=== PATIENT | female | born 1980 | race Caucasian/White ===

== ENCOUNTER 2016-08-06 06:34 | Day surgery (SDC) | payer BC ==
[2016-08-06] MEDS ORDERED: Lactated Ringers 1,000 ML IV SCH (07:30)
[2016-08-06] MEDS ORDERED: Glycopyrrolate 0.2 MG/ML 2 ML SYRINGE IVPUSH ONE (07:45)
[2016-08-06] MEDS ORDERED: Cyanocobalamin (Vitamin B12) 1,000 MCG/ML SDV IM ONE (08:00)
[2016-08-06] MEDS ORDERED: Propofol 200 MG/20 ML SDV ONE (08:10)
[2016-08-06] MEDS ORDERED: Midazolam 1 MG/ML 2 ML SDV ONE (08:10)
[2016-08-06] MEDS ORDERED: fentaNYL 100 MCG/2 ML SDV ONE (08:10)
[2016-08-06] MEDS ORDERED: MVI, Adult with Vitamin K 10 ML, Thiamine 200 MG, Chromium/Copper/Mang/Selen/Zn 1 ML in... IV SCH ×4 (08:45)
[2016-08-06] MEDS ORDERED: MVI, Adult with Vitamin K 10 ML, Thiamine 200 MG, Chromium/Copper/Mang/Selen/Zn 1 ML in... IV ONE ×4 (08:45)
[2016-08-06 10:54] VITALS: BP 119/67
--- NOTE | 2016-08-13 13:49 | OR ---
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 POSTOPERATIVE DIAGNOSIS: Moderately strictured gastrojejunostomy. OPERATIVE PROCEDURE: Upper GI endoscopy with dilation of gastrojejunostomy (04095). ANESTHESIA: IV sedation. INDICATIONS FOR PROCEDURE: This is a 36-year-old female presenting with a picture suggestive of stricturing at her gastrojejunostomy, having been had a gastric bypass on 06/20/2016. Plan is to proceed with an upper GI endoscopy with dilation as indicated. Potential risks including bleeding and perforation were discussed, and the patient wishes to proceed. DETAILS OF PROCEDURE: The patient was taken to the operating room and placed in left lateral decubitus position. IV sedation was administered, after which the upper GI endoscope was passed orally through the length of the esophagus and into the gastric pouch. The patient was noted to have no retained food or fluid under fluoroscopic surveillance, and the moderate stricture was then traversed, and then dilated with a 36-Pashto balloon catheter. This was held in position for 1 minute, after which the balloon catheter was deflated and withdrawn. The scope could easily be passed through the area that had previously been moderately strictured. No complications were noted. The scope was then withdrawn. The procedure concluded. The patient was taken to the recovery room in satisfactory condition. Jaswinder De La Cruz MD /[id number]
== END 2016-08-06 11:06 | disposition home or self-care (01) ==
LOC: JP.SDS 06:34
PROVIDERS: ATTEND Surgery
PROC: 0D768ZZ Dilation of Stomach, Via Natural or Artificial Opening Endoscopic (ICD-10-PCS; principal; 2016-08-06)
DX: K91.89 Other postprocedural complications and disorders of digestive system (principal); Y84.8 Other medical procedures as the cause of abnormal reaction of the patient, or of later complication, without mention of misadventure at the time of the procedure; R13.10 Dysphagia, unspecified; Z98.84 Bariatric surgery status
CPT/HCPCS: 43245; J2250; J2704; J3010; J3411; J3420; J7120

== ENCOUNTER 2016-08-23 06:31 | Day surgery (SDC) | payer BC ==
[2016-08-23] MEDS ORDERED: Lactated Ringers 1,000 ML IV SCH (07:00)
[2016-08-23] MEDS ORDERED: Propofol 200 MG/20 ML SDV ONE (07:13)
[2016-08-23] MEDS ORDERED: Midazolam 1 MG/ML 2 ML SDV ONE (07:13)
[2016-08-23] MEDS ORDERED: fentaNYL 100 MCG/2 ML SDV ONE (07:13)
[2016-08-23] MEDS ORDERED: Glycopyrrolate 0.2 MG/ML 2 ML SYRINGE IVPUSH ONE (07:45)
[2016-08-23] MEDS ORDERED: Cyanocobalamin (Vitamin B12) 1,000 MCG/ML SDV IM ONE (08:15)
[2016-08-23] MEDS ORDERED: MVI, Adult with Vitamin K 10 ML, Thiamine 200 MG, Chromium/Copper/Mang/Selen/Zn 1 ML in... IV ONE ×4 (09:00)
[2016-08-23 12:26] VITALS: BP 114/74
--- NOTE | 2016-08-23 12:42 | OR ---
DATE OF PROCEDURE: 08/23/2016 PROCEDURE: EGD. FINDINGS: 1. Approximately 60% narrowing of the gastrojejunal anastomosis (the scope could be advanced without dilation). 2. No other gross abnormalities. COMPLICATIONS: None. CHEMISTRY ASSOCIATE: None. BALLOON USED: A 36-[place]ay[place] Islander dilation #2. ANESTHESIA: MAC. INDICATION: Risks, benefits, alternatives, and limitations, including, but not limited to infection, bleeding, and perforation were explained to the patient and she wished to proceed. PROCEDURE IN DETAIL: The patient was placed in left lateral decubitus position. The EGD scope was introduced and advanced atraumatically to the gastrojejunal anastomosis. This was noted to be about 60% narrowed. The scope was able to be passed through this barely without intraoperative fluoroscopy. This was passed through and the pouch was inspected. There was no evidence of ulceration. The blind limb was normal. The Jessi-en-Y limb was also normal. A 36-Cay[place] Islander balloon was introduced and subsequently dilated for 1 minute. After this, the anastomosis was inspected. There were no other abnormalities. Bleeding was minimal. The esophagus was normal. The patient tolerated the procedure well. Sarmad Gayle MD /[id number]
== END 2016-08-23 11:35 | disposition home or self-care (01) ==
LOC: JP.SDS 06:31
PROVIDERS: ATTEND Surgery
DX: K91.89 Other postprocedural complications and disorders of digestive system (principal); Z88.1 Allergy status to other antibiotic agents; Z88.2 Allergy status to sulfonamides; Z88.8 Allergy status to other drugs, medicaments and biological substances
CPT/HCPCS: 43245; J2250; J2704; J3010; J3411; J3420; J7120

== ENCOUNTER 2017-09-25 05:49 | Day surgery (SDC) | payer BC ==
[2017-09-25] MEDS ORDERED: Acetaminophen 500 MG Tab PO ONE (06:00)
[2017-09-25] MEDS ORDERED: Dextrose 5%-Lactated Ringers 1,000 ML IV SCH (06:30)
[2017-09-25] MEDS ORDERED: Clindamycin Phosphate 900 MG in Sodium Chloride 0.9% 100 ML IV ONE (06:30)
[2017-09-25] MEDS ORDERED: Albuterol/Ipratropium 3.0-0.5 MG/3 ML Neb Soln NEB ONE (06:30)
[2017-09-25] MEDS ORDERED: Bupivacaine 0.5%/EPINEPHrine 1:200,000 50 ML MDV ONE (06:35)
[2017-09-25] MEDS ORDERED: Meropenem 500 MG SDV ONE (06:48)
[2017-09-25] MEDS ORDERED: fentaNYL 250 MCG/5 ML SDV ONE (06:52)
[2017-09-25] MEDS ORDERED: Ketorolac 60 MG/2 ML SDV ONE (07:35)
[2017-09-25] MEDS ORDERED: Ondansetron 4 MG/2 ML SDV ONE (07:38)
[2017-09-25] MEDS ORDERED: Dexamethasone 4 MG/ML SDV ONE (07:38)
[2017-09-25] MEDS ORDERED: Propofol 200 MG/20 ML SDV ONE (07:38)
[2017-09-25] MEDS ORDERED: Glycopyrrolate 0.2 MG/ML 5 ML MDV ONE (07:38)
[2017-09-25] MEDS ORDERED: Rocuronium 50 MG/5 ML Vial ONE (07:38)
[2017-09-25] MEDS ORDERED: Neostigmine Methylsulfate 1 MG/ML 5 ML Syringe ONE (07:38)
[2017-09-25] MEDS ORDERED: Succinylcholine 200 MG/10 ML MDV ONE (07:38)
[2017-09-25] MEDS ORDERED: HYDROmorphone 2 MG Tab PO PRN (09:11)
[2017-09-25 10:02] VITALS: BP 118/69
--- NOTE | 2017-10-01 14:30 | OR ---
DATE OF PROCEDURE: 09/25/2017 PREOPERATIVE DIAGNOSIS: Incarcerated incisional hernia. POSTOPERATIVE DIAGNOSIS: Incarcerated incisional hernia. OPERATIVE PROCEDURE: Open repair of incarcerated incisional hernia with mesh ([id number], [id number]). ANESTHESIA: General. ASSISTANTS: 1. Zara Hinojosa PA-C. 2. LUCY Lay. 3. LUCY Velez. INDICATIONS FOR PROCEDURE: This is a 37-year-old presenting with an incarcerated hernia marked for a laparoscopic trocar sites. This has not been reducible with plan to proceed with the open repair with mesh plug technique. Potential risks including bleeding, infection, injury to underlying viscera, problems with the hernia recurring or mesh becoming infected were all reviewed, and the patient wishes to proceed. DETAILS OF PROCEDURE: The patient was taken to the operating room and placed in a supine position. The site of the incarcerated hernia had been marked on the abdominal wall. After general endotracheal anesthesia was induced, the abdomen was prepped and draped. The area of incarcerated hernia was once again palpated and transversely oriented incision was made overlying this, carried down through the skin and subcutaneous tissue and then continued down around the area of the incarcerated hernia. The preperitoneal fat located within 3 layers of muscle was then dissected free and then excised, flushed with the underlying fascial defect which measured around 6 mm. Once this had been completed, a medium mesh plug was selected. This was then placed in the plane just below the fascia and affixed 4 corners with horizontal mattress sutures of 0 Vicryl stitch, thus fixing the edges of the mesh well away from the actual fascial defect. Fascial defect itself was then closed with 3 stitches of #1 Vicryl stitch. The subcutaneous tissue was approximated with some 4-0 Vicryl stitch and the skin was closed with 4-0 Vicryl subcuticular stitch. Dressing was applied. The patient was taken to the recovery room in satisfactory condition. Physician administrative sales assistant, Zara Hinojosa PA-C, played an essential role in assisting in this case, helping to position the patient, retract structures as needed, as well as suturing and cutting sutures when indicated. Her presence improved patient's safety and decreased operative time. Jaswinder De La Cruz MD /[id number]
== END 2017-09-25 10:05 | disposition home or self-care (01) ==
LOC: JP.SDS 05:49
PROVIDERS: ATTEND Surgery
DX: K43.0 Incisional hernia with obstruction, without gangrene (principal); F33.9 Major depressive disorder, recurrent, unspecified; J45.990 Exercise induced bronchospasm; K21.9 Gastro-esophageal reflux disease without esophagitis; E66.9 Obesity, unspecified; Z79.2 Long term (current) use of antibiotics; Z79.899 Other long term (current) drug therapy; Z88.1 Allergy status to other antibiotic agents; Z88.2 Allergy status to sulfonamides; Z88.8 Allergy status to other drugs, medicaments and biological substances; Z87.891 Personal history of nicotine dependence; Z68.24 Body mass index [BMI] 24.0-24.9, adult
CPT/HCPCS: 49561; 49568; 81025; 88302; 94640; A9270; C1781; J0330; J1100; J1885; J2185; J2405; J2704; J2710; J3010; J7030; J7042; J7620; S0077

== ENCOUNTER 2017-12-07 12:44 | Emergency (ER) | payer SELFPAY ==
[2017-12-07 13:08] VITALS: BP 118/70
[2017-12-07] MEDS ORDERED: Bacitracin Oint 1 GM U/D Packet TOP ONE (13:50)
--- NOTE | 2017-12-07 14:00 | EDM.PDOC ---
ED HPI GENERAL MEDICAL PROBLEM - General Chief Complaint: General Time Seen by Provider: 12/07/17 13:30 Source of Information: Reports: Patient History Limitations: Reports: No Limitations - History of Present Illness INITIAL COMMENTS - FREE TEXT/NARRATIVE: 37-year-old female was cleaning a postsurgical area when she had a slight scalpel injury to the distal aspect of the index finger on the left hand. Onset: Sudden Duration: Hour(s): (Within the last hour) Location: Reports: Upper Extremity, Left Severity: Mild - Related Data Allergies Allergy/AdvReac Type Severity Reaction Status Date / Time cefdinir [From Omnicef] Allergy Hives Verified 09/25/17 06:06 erythromycin base AdvReac Stomach Verified 09/25/17 06:06 [Erythromycin Base] Upset Sulfa (Sulfonamide AdvReac Stomach Verified 09/25/17 06:06 Antibiotics) Upset Home Meds: Home Meds Albuterol [Proair HFA] 2 puff PO QID PRN 02/07/14 [History] SUMAtriptan Succinate [Sumatriptan Succinate] 0.5 ml SUBCUT ASDIRECTED 02/07/14 [History] Sertraline HCl 50 mg PO QPM 02/07/14 [History] Cetirizine [ZyrTEC] 10 mg PO DAILY 06/16/16 [History] Cyanocobalamin (Vitamin B-12) [Vitamin B-12] 1,000 mcg SL BID 06/16/16 [History] Cyclobenzaprine [Flexeril] 10 mg PO TID PRN 06/16/16 [History] Docusate Sodium [Dok] 100 mg PO DAILY 06/16/16 [History] Etonogestrel [Nexplanon] 68 mg IM .Q3YR 06/16/16 [History] Olopatadine [Patanol 0.1% Ophth Soln] 1 drop EYERT BID PRN 06/16/16 [History] Calcium Cit/Mag/D3/Zn/Motion Picture Commentator/Quinn [Calcium Citrate Plus Tablet] 1 each PO BID 08/05 [History] Iron,Carbonyl/Ascorbic Acid [Vitron-C Tablet] 1 each PO BID 08/05/16 [History] Multivitamin [Multi-Vitamin Daily] 1 tab PO BID 08/05/16 [History] Dicyclomine [Bentyl] 10 mg PO Q4HR PRN 09/21/17 [History] Fluticasone Propionate [Flonase] 1 spray JESSIE BID 09/21/17 [History] Omeprazole 20 mg PO DAILY 09/21/17 [History] Ondansetron HCl [Zofran] 4 mg PO Q4HR PRN 09/21/17 [History] Sertraline HCl [Zoloft] 100 mg PO QAM 09/25/17 [History] Past Medical History HEENT History: Reports: Impaired Vision, Otitis Media Other HEENT History: wears glasses Cardiovascular History: Reports: Heart Murmur Respiratory History: Reports: Asthma Other Respiratory History: "allergy induced asthma" Gastrointestinal History: Reports: Chronic Constipation Genitourinary History: Reports: Renal Calculus 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: Musculoskeletal History: Reports: Other (See Below) Other Musculoskeletal History: right ac joint pain Neurological History: Reports: Migraines Psychiatric History: Reports: Depression Endocrine/Metabolic History: Reports: Obesity/BMI 30+ Hematologic History: Reports: B12 Deficiency, Iron Deficiency - Infectious Disease History Infectious Disease History: Reports: Chicken Pox - Past Surgical History HEENT Surgical History: Reports: Oral Surgery, Tonsillectomy GI Surgical History: Reports: Bariatric Procedure, Cholecystectomy, EGD, Esophageal Dilatation, Hernia Repair/Other Female Surgical History: Reports: Section, Other (See Below) Other Female Surgeries/Procedures: ovarian cyst removed Oncologic Surgical History: Reports: None Social & Family History - Family History HEENT: Reports: Cataract Cardiac: Reports: Cardiomyopathy, Heart Murmur, High Cholesterol, Hypertension, [place] Other Cardiac Family History: ventricular septal defect in twin sister Respiratory: Reports: PE : Reports: Renal Calculus OBGYN: Reports: Fibroids Musculoskeletal: Reports: Back pain, Chronic Neurological: Reports: CVA, Migraines Psychiatric: Reports: Depression Endocrine/Metabolic: Reports: Diabetes, type II Oncologic: Reports: Lung, Thyroid, Uterine - Tobacco Use Smoking Status *Q: Never Smoker - Caffeine Use Caffeine Use: Reports: Coffee - Recreational Drug Use Recreational Drug Use: No ED ROS GENERAL - Review of Systems Review Of Systems: ROS reveals no pertinent complaints other than HPI. ED EXAM, GENERAL - Physical Exam Exam: See Below Exam Limited By: No Limitations General Appearance: Alert, No Apparent Distress Respiratory/Chest: No Respiratory Distress Extremities: Other (Remainder of exam is limited to the left hand. She has a very small, 3 mm superficial abrasion or laceration to the palmar surface of the distal index finger, no active bleeding) Course - Vital Signs Last Recorded V/S: Last Vital Signs Temp 97.7 F 12/07/17 13:07 Pulse 77 12/07/17 13:07 Resp 18 12/07/17 13:07 BP 118/70 12/07/17 13:07 Pulse Ox 99 12/07/17 13:07 - Orders/Labs/Meds Meds: Medications Discontinued Medications Generic Name Dose Route Start Last Admin Trade Name Odessa PRN Reason Stop Dose Admin Bacitracin 1 dose 12/07/17 13:50 12/07/17 14:10 Bacitracin Oint 1 Gm TOP 12/07/17 13:51 Not Given ONETIME ONE - Re-Assessments/Exams Free Text/Narrative Re-Assessment/Exam: 12/07/17 13:58 The usual source and patient labs were drawn per protocol including hepatitis B , C, HIV. No prophylactic treatment recommended for requested. Topical bacitracin was applied to the wound and the patient can follow up per lab results. Departure - Departure Time of Disposition: 14:12 Disposition: Home, Self-Care 01 Condition: Good Clinical Impression: Needle stick injury of finger of left hand Qualifiers: Encounter type: initial encounter Qualified Code(s): S61.239A - Puncture wound without foreign body of unspecified finger without damage to nail, initial encounter - Discharge Information Instructions: Needlestick Injury, [id number] Referrals: PCP,None [Primary Care Provider] - Forms: ED Department Discharge Care Plan Goals: Keep wound covered and clean while healing. Recheck if concerns of infection or not healing satisfactorily, and you will be contacted with lab results.
== END 2017-12-07 14:12 | disposition home or self-care (01) ==
LOC: JP.ED 12:44
DX: S61.230A Puncture wound without foreign body of right index finger without damage to nail, initial encounter (principal); I10 Essential (primary) hypertension; I25.2 Old myocardial infarction; E78.00 Pure hypercholesterolemia, unspecified; E11.9 Type 2 diabetes mellitus without complications; F32.9 Major depressive disorder, single episode, unspecified; J45.909 Unspecified asthma, uncomplicated; Z88.0 Allergy status to penicillin; Z88.2 Allergy status to sulfonamides; Z87.442 Personal history of urinary calculi; Z79.899 Other long term (current) drug therapy; W26.8XXA Contact with other sharp object(s), not elsewhere classified, initial encounter
CPT/HCPCS: 99282; 99283

== ENCOUNTER 2018-09-29 09:46 | Emergency (ER) | payer BC ==
[2018-09-29] MEDS ORDERED: Ketorolac 60 MG/2 ML SDV IM ONE (10:19)
[2018-09-29 10:32] VITALS: BP 125/66
--- NOTE | 2018-09-29 10:41 | EDM.PDOC ---
<Fadumo Duong M - Last Filed: 09/29/18 11:32> ED HPI GENERAL MEDICAL PROBLEM - General Chief Complaint: Genitourinary Problem Stated Complaint: RIGHT BACK PAIN Time Seen by Provider: 09/29/18 10:10 Source of Information: Reports: Patient History Limitations: Reports: No Limitations - History of Present Illness Onset: Today, Sudden (4am. Woke with need to have bowel movement at 3am, very unusual for patient, then intense abdominal pain at 4. Unable to resume sleep. Comes in with mother. ) Quality: Reports: Stabbing Severity: Severe (rates 10/10 when most uncomfortable, 6/10 when comfortable.) Associated Symptoms: Reports: No Other Symptoms Right Flank Pain Score (Numeric/FACES): 8 - Related Data Allergies Allergy/AdvReac Type Severity Reaction Status Date / Time cefdinir [From Omnicef] Allergy Hives Verified 09/29/18 09:56 erythromycin base AdvReac Stomach Verified 09/29/18 09:56 [Erythromycin Base] Upset Sulfa (Sulfonamide AdvReac Stomach Verified 09/29/18 09:56 Antibiotics) Upset Home Meds: Home Meds Albuterol [Proair HFA] 2 puff PO QID PRN 02/07/14 [History] SUMAtriptan succinate [Sumatriptan Succinate] 0.5 ml SUBCUT ASDIRECTED 02/07/14 [History] Sertraline HCl 50 mg PO QPM 02/07/14 [History] Cetirizine [ZyrTEC] 10 mg PO DAILY 06/16/16 [History] Cyanocobalamin (Vitamin B-12) [Vitamin B-12] 1,000 mcg SL BID 06/16/16 [History] Cyclobenzaprine [Flexeril] 10 mg PO TID PRN 06/16/16 [History] Docusate Sodium [Dok] 100 mg PO DAILY 06/16/16 [History] Etonogestrel [Nexplanon] 68 mg IM .Q3YR 06/16/16 [History] Olopatadine [Patanol 0.1% Ophth Soln] 1 drop EYERT BID PRN 06/16/16 [History] Calcium Cit/Mag/D3/Zn/Impregnating Tank Operator/Quinn [Calcium Citrate Plus Tablet] 1 each PO BID 08/05 [History] Iron,Carbonyl/Ascorbic Acid [Vitron-C Tablet] 1 each PO BID 08/05/16 [History] Multivitamin [Multi-Vitamin Daily] 1 tab PO BID 08/05/16 [History] Ondansetron HCl [Zofran] 4 mg PO Q4HR PRN 09/21/17 [History] Sertraline HCl [Zoloft] 100 mg PO QAM 09/25/17 [History] Past Medical History HEENT History: Reports: Impaired Vision, Otitis Media Other HEENT History: wears glasses Cardiovascular History: Reports: Heart Murmur Respiratory History: Reports: Asthma, Other (See Below) Other Respiratory History: "allergy induced asthma" Gastrointestinal History: Reports: Chronic Constipation Genitourinary History: Reports: Renal Calculus, UTI, 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: Musculoskeletal History: Reports: Other (See Below) Other Musculoskeletal History: right ac joint pain Neurological History: Reports: Migraines Psychiatric History: Reports: Depression Endocrine/Metabolic History: Reports: Obesity/BMI 30+ Hematologic History: Reports: B12 Deficiency, Iron Deficiency - Infectious Disease History Infectious Disease History: Reports: Chicken Pox - Past Surgical History HEENT Surgical History: Reports: Oral Surgery, Tonsillectomy GI Surgical History: Reports: Bariatric Procedure, Cholecystectomy, EGD, Esophageal Dilatation, Hernia Repair/Other Female Surgical History: Reports: Section, Other (See Below) Other Female Surgeries/Procedures: ovarian cyst removed Oncologic Surgical History: Reports: None Social & Family History - Family History HEENT: Reports: Cataract Cardiac: Reports: Cardiomyopathy, Heart Murmur, High Cholesterol, Hypertension, [place] Other Cardiac Family History: ventricular septal defect in twin sister Respiratory: Reports: PE : Reports: Renal Calculus OBGYN: Reports: Fibroids Musculoskeletal: Reports: Back pain, Chronic Neurological: Reports: CVA, Migraines Psychiatric: Reports: Depression Endocrine/Metabolic: Reports: Diabetes, type II Oncologic: Reports: Lung, Thyroid, Uterine - Tobacco Use Smoking Status *Q: Never Smoker - Caffeine Use Caffeine Use: Reports: Coffee - Recreational Drug Use Recreational Drug Use: No ED ROS GENERAL - Review of Systems Review Of Systems: ROS reveals no pertinent complaints other than HPI. Constitutional: Reports: No Symptoms HEENT: Reports: No Symptoms Respiratory: Reports: No Symptoms, Other (seasonal allergies, but not in a flair up situation presently. ) Cardiovascular: Reports: No Symptoms Endocrine: Reports: No Symptoms GI/Abdominal: Reports: Abdominal Pain (right-sided flank pain, but does migrate to right middle and lower quadrant) : Reports: Flank Pain (right sided) Musculoskeletal: Reports: No Symptoms Skin: Reports: No Symptoms Neurological: Reports: No Symptoms Psychiatric: Reports: No Symptoms Hematologic/Lymphatic: Reports: No Symptoms Immunologic: Reports: No Symptoms ED EXAM, RENAL/ - Physical Exam Exam: See Below Exam Limited By: No Limitations General Appearance: Alert, WD/WN, Mild Distress Ears: Hearing Grossly Normal Head: Atraumatic, Normocephalic Neck: Normal Inspection, Supple, Non-Tender, Full Range of Motion Respiratory/Chest: No Respiratory Distress, Lungs Clear, Normal Breath Sounds, No Accessory Muscle Use, Chest Non-Tender Cardiovascular: Regular Rate, Rhythm, No Murmur GI/Abdominal: Normal Bowel Sounds, Soft, Tender (right middle and lower quadrant ) Back Exam: Normal Inspection, Full Range of Motion Extremities: Normal Inspection, Normal Range of Motion Neurological: Alert, Oriented, Normal Cognition Psychiatric: Normal Affect, Normal Mood Skin Exam: Warm, Dry, Intact, Normal Color, No Rash Course - Vital Signs Text/Narrative:: Patient presents after 4am onset of acute right-sided abdominal pain that migrated to her right flank region. States 'feels a lot like the pain of my kidney stone'. One dose of Toradol 60mg ordered. patient asked to give urine specimen. Last Recorded V/S: Last Vital Signs Temp 35.7 C 09/29/18 10:14 Pulse 62 09/29/18 10:14 Resp 13 09/29/18 10:14 BP 125/66 09/29/18 10:14 Pulse Ox 99 09/29/18 10:14 - Orders/Labs/Meds Labs: Laboratory Tests 09/29/18 Range/Units 10:26 Urine Color Brown Urine Appearance Turbid Urine pH 6.0 (4.5-8.0) Ur Specific Breeding 1.015 (1.008-1.030) Urine Protein 100 H (NEGATIVE) mg/dL Urine Glucose (UA) Normal (NEGATIVE) mg/dL Urine Ketones 15 H (NEGATIVE) mg/dL Urine Occult Blood Large (NEGATIVE) Urine Nitrite Negative (NEGATIVE) Urine Bilirubin Small (NEGATIVE) Urine Urobilinogen 1 (NORMAL) mg/dL Ur Leukocyte Esterase Small (NEGATIVE) Urine RBC Packed H (0-5) Urine WBC 5-10 H (0-5) Ur Epithelial Cells Few Amorphous Sediment Few Urine Bacteria Moderate Urine Mucus Few Urine Other See note Meds: Medications Discontinued Medications Generic Name Dose Route Start Last Admin Trade Name Odessa PRN Reason Stop Dose Admin Ketorolac Tromethamine 60 mg 09/29/18 10:19 09/29/18 10:25 Toradol IM 09/29/18 10:20 60 mg ONETIME ONE Administration - Radiology Interpretation Free Text/Narrative:: After consult with my preceptor, I ordered a one view flat abdominal xray. - Re-Assessments/Exams Free Text/Narrative Re-Assessment/Exam: 09/29/18 11:08 Patient describes pain relief (08/19). 09/29/18 11:32 Discussed xray findings with patient. Compared to CT from 07/09/18, kidney stone migrated to ureter, likely etiology of pain. Departure - Departure Time of Disposition: 11:39 Disposition: Home, Self-Care 01 Clinical Impression: Ureterolithiasis - Discharge Information *PRESCRIPTION DRUG MONITORING PROGRAM REVIEWED*: No *COPY OF PRESCRIPTION DRUG MONITORING REPORT IN PATIENT JUDY: No Instructions: Kidney Stones, [id number] Referrals: Radha Goldberg PA [Primary Care Provider] - Forms: ED Department Discharge Additional Instructions: Increase water to 64 fluid ounces per day. Take pain medications PRN. Follow up with PCP if symptoms do not resolve in 3-5 days. <Xavier Young - Last Filed: 09/29/18 12:46> Course - Re-Assessments/Exams Free Text/Narrative Re-Assessment/Exam: 09/29/18 12:40 I saw this patient along with the nurse practitioner student. This lady presents with right flank pain that began this morning. She said it felt like when she had a where she passed a kidney stone previously. She was given an injection of Toradol and that has decreased her pain substantially. A recent abdominal CT showed a 5 mm stone in the upper pole of the right kidney. A flat abdominal x-ray today shows an absence of the calculus in the right kidney but now there is a density that appears to be in the ureter just below the lower pole of the right kidney. Urine is consistent with passage of the stone. Will cover her with some Percocet, Flomax, Macrobid, and I believe she may have some Toradol. I agree with the nurse practitioner student's assessment and plan
--- NOTE | 2018-09-29 11:48 | CRLCR ---
HISTORY: Suspect right kidney stone. Technique : KUB Findings: There is a 6 mm calcification at the L2-L3 levels most likely reflecting a proximal right ureteral stone. No additional calculi definitively seen. Sutures in left mid abdomen and upper abdomen. Calcification in the pelvis nonspecific. Dictated by Beverly Husain MD @ Sep 29 2018 11:45AM Signed by Dr. Beverly Husain @ Sep 29 2018 11:47AM
== END 2018-09-29 11:46 | disposition home or self-care (01) ==
LOC: JP.ED 09:46
DX: N20.1 Calculus of ureter (principal); J45.909 Unspecified asthma, uncomplicated; F32.9 Major depressive disorder, single episode, unspecified; Z88.1 Allergy status to other antibiotic agents; Z88.2 Allergy status to sulfonamides; Z88.8 Allergy status to other drugs, medicaments and biological substances; Z79.899 Other long term (current) drug therapy
CPT/HCPCS: 74018; 81001; 96372; 99283; J1885

== ENCOUNTER 2020-12-28 05:24 | Day surgery (SDC) | payer BC ==
[2020-12-28] MEDS ORDERED: Dextrose 5%-Lactated Ringers 1,000 ML IV SCH (06:00)
[2020-12-28] MEDS ORDERED: fentaNYL 100 MCG/2 ML SDV ONE (07:06)
[2020-12-28] MEDS ORDERED: Midazolam 1 MG/ML 2 ML SDV ONE (07:06)
[2020-12-28] MEDS ORDERED: Propofol 200 MG/20 ML SDV ONE ×2 (07:06→07:25)
[2020-12-28 08:35] VITALS: BP 110/61; PULSE 69
--- NOTE | 2021-01-03 14:19 | OR ---
DATE OF PROCEDURE: 12/28/2020 SURGEON: Jaswinder De La Cruz MD PREOPERATIVE DIAGNOSIS: Family history of colon carcinoma. POSTOPERATIVE DIAGNOSIS: Normal colonoscopic examination. OPERATIVE PROCEDURE: Flexible colonoscopy. ANESTHESIA: IV sedation. INDICATIONS FOR PROCEDURE: A 40-year-old recently noted to have her mother developing a colon carcinoma. Given this with the positive family history, she is to undergo a colonoscopy with biopsies and/or polypectomy at this time. Potential risks of the procedure were reviewed with the patient and she wishes to proceed. DETAILS OF PROCEDURE: The patient was taken to the operating room and placed in a left lateral decubitus position. IV sedation was administered after which the initial digital rectal exam was performed and was unremarkable. Colonoscope was then passed into the rectum with retroflexion revealing uncomplicated hemorrhoidal columns. The scope was eventually passed to the level of the cecum. There was a fairly good prep with a small amount of liquid stool present which was being aspirated. Thus, the vast majority of the mucosal surfaces were well-visualized. To that level, there was no evidence of polyps or other signs of neoplasia. No areas of colitis and no areas of diverticular disease. The scope was then withdrawn, the above findings reconfirmed, and the procedure then concluded. Due to the positive family history and today's normal examination, the next colonoscopy should be considered in 5 years. Jaswinder De La Cruz MD /[id number]
== END 2020-12-28 08:38 | disposition home or self-care (01) ==
LOC: JP.SDS 05:24
PROVIDERS: ATTEND Surgery
DX: Z12.11 Encounter for screening for malignant neoplasm of colon (principal); Z80.0 Family history of malignant neoplasm of digestive organs; K64.9 Unspecified hemorrhoids; K21.9 Gastro-esophageal reflux disease without esophagitis; J45.909 Unspecified asthma, uncomplicated
CPT/HCPCS: 45378; 81025; J2250; J2704; J3010; J7121

== ENCOUNTER 2022-04-18 05:57 | Day surgery (SDC) | payer BC ==
[2022-04-18] MEDS ORDERED: Nozin Nasal Sanitizer NASBOTH ONE (06:30)
[2022-04-18] MEDS ORDERED: Bupivacaine 0.5% 30 ML SDV ONE (06:33)
[2022-04-18] MEDS ORDERED: Lactated Ringers 1,000 ML IV SCH (07:00)
[2022-04-18] MEDS ORDERED: fentaNYL 100 MCG/2 ML SDV ONE (07:23)
[2022-04-18] MEDS ORDERED: Midazolam 1 MG/ML 2 ML SDV ONE ×2 (07:23→08:11)
[2022-04-18] MEDS ORDERED: Propofol 200 MG/20 ML SDV ONE (07:23)
[2022-04-18] MEDS ORDERED: Lidocaine 0.5% 50 ML SDV ONE (07:25)
[2022-04-18] MEDS ORDERED: Clindamycin Phosphate in D5W 900 MG in Premix Bag 1 BAG IV ONE ×2 (07:30)
[2022-04-18 09:46] VITALS: BP 105/63; PULSE 69
== END 2022-04-18 10:00 | disposition home or self-care (01) ==
LOC: JP.SDS 05:57
PROVIDERS: ATTEND Specialist
DX: M67.431 Ganglion, right wrist (principal); K21.9 Gastro-esophageal reflux disease without esophagitis; F32.A Depression, unspecified; G43.909 Migraine, unspecified, not intractable, without status migrainosus; E66.9 Obesity, unspecified; F41.9 Anxiety disorder, unspecified; Z68.27 Body mass index [BMI] 27.0-27.9, adult; Z98.890 Other specified postprocedural states; Z79.899 Other long term (current) drug therapy; Z88.2 Allergy status to sulfonamides; Z88.1 Allergy status to other antibiotic agents
CPT/HCPCS: 25111; 36415; 80048; 85027; A9270; J2250; J2704; J3010; J3490; J7120

== ENCOUNTER 2022-10-16 09:56 | Emergency (ER) | payer BC ==
[2022-10-16 11:15] LABS: BASOPHILS ABSOLUTE AUTO 0.03 K/uL (0.00-0.10); BASOPHILS PERCENT AUTO 0.5 % (0.1-1.3); EOSINOPHILS ABSOLUTE AUTO 0.04 K/uL (0.00-0.40); EOSINOPHILS PERCENT AUTO 0.7 % (0.0-5.4); HEMATOCRIT 42.5 % (34.3-46.0); HEMOGLOBIN 14.3 g/dL (11.2-15.5); IMMATURE GRAN ABSOLUTE AUTO 0.03 K/uL (0.00-0.23); IMMATURE GRAN PERCENT AUTO 0.5 % (0.0-0.7); LYMPHOCYTES ABSOLUTE AUTO 1.66 K/uL (0.8-3.3); LYMPHOCYTES PERCENT AUTO 29.6 % (11.4-47.7); MEAN CORPUSCULAR HEMOGLOBIN 34.7 pg (31.6-35.5); MEAN CORPUSCULAR HGB CONC 33.6 g/dL (31.6-35.5); MEAN CORPUSCULAR VOLUME 103.2 fL (81.4-99.0); MONOCYTES ABSOLUTE AUTO 0.41 K/uL (0.20-0.90); MONOCYTES PERCENT AUTO 7.3 % (3.3-12.6); NEUTROPHILS ABSOLUTE AUTO 3.43 K/uL (1.0-7.6); NEUTROPHILS PERCENT AUTO 61.4 % (40.0-78.1); PLATELET COUNT,PLT 294 K/uL (130-375); RED BLOOD CELL COUNT 4.12 M/uL (3.77-5.24); WHITE BLOOD CELL COUNT,WBC 5.6 K/uL (3.2-11.0)
[2022-10-16 11:35] VITALS: BP 126/71; PULSE 70
[2022-10-16 11:37] LABS: A/G RATIO 1.3 (1.2-2.2); ALANINE AMINOTRANSFERASE,ALT 45 U/L (12-78); ALBUMIN 3.8 g/dL (3.4-5.0); ALKALINE PHOSPHATASE 70 U/L (46-116); ASPARTATE AMNIOTRANSFERASE,AST 34 U/L (15-37); BILIRUBIN TOTAL 0.5 mg/dL (0.2-1.0); BLOOD UREA NITROGEN,BUN 6 mg/dL (7-18); CALCIUM 8.3 mg/dL (8.5-10.1); CARBON DIOXIDE,CO2 29 mmol/L (21-32); CHLORIDE,CL 102 mmol/L (100-108); CREATININE 0.5 mg/dL (0.6-1.0); EST CRCL DRUG DOSING (CG) 135.81 mL/min; ESTIMATED GFR 119 mL/min (>60); GLUCOSE RANDOM 107 mg/dL (74-106); POTASSIUM,K 4.3 mmol/L (3.6-5.2); PROTEIN TOTAL,TP 6.8 g/dL (6.4-8.2); SODIUM,NA 136 mmol/L (140-148)
[2022-10-16 11:39] LABS: ANION GAP 9.3 mmol/L (5.0-14.0)
== END 2022-10-16 12:47 | disposition home or self-care (01) ==
LOC: JP.ED 09:56
DX: R10.31 Right lower quadrant pain (principal); J45.909 Unspecified asthma, uncomplicated; E66.9 Obesity, unspecified; Z68.27 Body mass index [BMI] 27.0-27.9, adult; Z86.16 Personal history of COVID-19; Z88.1 Allergy status to other antibiotic agents; Z88.2 Allergy status to sulfonamides; Z79.899 Other long term (current) drug therapy
CPT/HCPCS: 36415; 74176; 80053; 83605; 85025; 99284

== ENCOUNTER 2022-11-18 08:07 | Day surgery (SDC) | payer BC ==
[~2022-11-18 08:07] MED LIST: Acetaminophen 500 MG Tab PO ONE
[2022-11-18] MEDS ORDERED: ceFAZolin 1 GM in Premix Bag 1 BAG IV ONE (09:00)
[2022-11-18] MEDS ORDERED: Propofol 200 MG/20 ML SDV ONE ×4 (09:05→10:42)
[2022-11-18] MEDS ORDERED: Midazolam 1 MG/ML 2 ML SDV ONE ×2 (09:07→09:58)
[2022-11-18] MEDS ORDERED: fentaNYL 50 MCG/ML SDV ONE (09:08)
[2022-11-18] MEDS ORDERED: Dextrose 5%-Lactated Ringers 1,000 ML IV SCH (09:15)
[2022-11-18] MEDS ORDERED: Bupivacaine 0.5% 50 ML MDV ONE (09:23)
[2022-11-18] MEDS ORDERED: Lidocaine 1% with EPINEPHrine 1:100,000 50 ML MDV ONE (09:23)
[2022-11-18] MEDS ORDERED: Bacitracin Oint 1 GM U/D Packet ONE (10:37)
[2022-11-18 11:38] VITALS: BP 107/67; PULSE 77
== END 2022-11-18 12:00 | disposition home or self-care (01) ==
LOC: JP.SDS 08:07
PROVIDERS: ATTEND Surgery
DX: L82.1 Other seborrheic keratosis (principal); L83 Acanthosis nigricans; L85.9 Epidermal thickening, unspecified; L90.5 Scar conditions and fibrosis of skin; K21.9 Gastro-esophageal reflux disease without esophagitis; F32.A Depression, unspecified; Z88.2 Allergy status to sulfonamides; Z88.1 Allergy status to other antibiotic agents; Z79.899 Other long term (current) drug therapy
CPT/HCPCS: 11424; 11446; 88305; A9270; J0690; J2250; J2704; J3010; J3490; J7121